=== PATIENT | male | born 1995 | race Two or more races ===

== ENCOUNTER 2018-01-27 08:12 | Observation (INO) ==
[2018-01-27 08:57] LABS: Baso % (Auto) 0.3 % (0.0-2.0); Eos % (Auto) 0.2 % (0.0-4.0); Hematocrit 45.6 % (39.0-51.0); Hemoglobin 15.8 gm/dL (13.0-17.0); Lymph # (Auto) 2.2 th/mm3 (1.0-4.8); Mean Corpuscular HGB Conc 34.6 % (32.0-36.0); Mean Corpuscular Hemoglobin 29.8 pg (27.0-34.0); Mean Corpuscular Volume 86.1 fL (80.0-100.0); Mean Platelet Volume 9.1 fL (7.0-11.0); Mono # (Auto) 1.5 th/mm3 (0.0-0.9); Mono % (Auto) 12.2 % (0.0-8.0); Neut # (Auto) 8.6 th/mm3 (1.8-7.7); Neut % (Auto) 69.3 % (16.0-70.0); Platelet Count 181 th/mm3 (150-450); Red Cell Distribution Width 12.5 % (11.6-17.2); White Blood Count 12.4 th/mm3 (4.0-11.0)
--- NOTE | 2018-01-27 09:06 | ED ---
HPI General Chief Complaint: Abdominal Pain Stated Complaint: Abd pain Time Seen by Provider: 01/27/18 08:38 Source: patient, RN notes reviewed and old records reviewed Mode of arrival: ambulatory Limitations: no limitations History of Present Illness HPI narrative: 22-year-old male notes 1 day history of right lower quadrant abdominal pain. He denies other concurrent complaints. Quality is sharp. Severity is moderate. He denies recurrent history of this. MD complaint: abdominal pain Onset (ago): day(s) Pain Consistency: constant Location: RLQ Severity: moderate Quality: sharp Radiation: none Migration to: no migration Relieving factors: nothing Associated symptoms: denies other symptoms Related Data Home Medications Medication Instructions Recorded Confirmed No Known Home Medications 01/27/18 01/27/18 Allergies Allergy/AdvReac Type Severity Reaction Status Date / Time No Known Allergies Allergy Verified 01/27/18 10:09 Review of Systems ROS: all other systems reviewed are negative FOR[facility]LY [facility] Medical History Medical History Patient denies medical problems (Acute) Surgical History Surgical History No history of previous surgery (Acute) Social History Social History Substance History: No History of Abuse Smoking Status: Never smoker How Often Do You Have a Drink Containing Alcohol: 4 or more times a week Recent Travel in [facility] within the Last 8 Weeks: No Recent Out of Country Travel within the Last 8 Weeks: No Immunization History Tetanus Immunization: <5 Years Exam Narrative Exam Narrative: GENERAL: 22 y/o male in no apparent distress SKIN: Focused skin assessment warm/dry. HEAD: Atraumatic. Normocephalic. EYES: Pupils equal and round. No scleral icterus. No injection or drainage. ENT: No nasal bleeding or discharge. Mucous membranes pink and moist. NECK: Trachea midline CARDIOVASCULAR: Regular rate and rhythm. No murmur appreciated. RESPIRATORY: No accessory muscle use. GASTROINTESTINAL: Abdomen soft, ttp in rlq, nondistended. Hepatic and splenic margins not palpable. MUSCULOSKELETAL: No obvious deformities. No clubbing. No cyanosis. No edema. NEUROLOGICAL: Awake and alert. No obvious cranial nerve deficits. Motor grossly within normal limits. Normal speech. PSYCHIATRIC: Appropriate mood and affect; insight and judgment normal. exam: No evidence of rotation, urethral discharge, testicular swelling or tenderness noted after permission with lacquer shader Course Reevaluation(s) Reevaluation #1: patient updated and agrees to admit, navneet given Consultations Consultation #1: dr uirbe will see patient and agrees to admit Initial Documented Vital Signs Temperature 99.3 F 01/27/18 08:13 Pulse Rate 126 H 01/27/18 08:13 Respiratory Rate 16 01/27/18 08:13 Blood Pressure 156/88 H 01/27/18 08:13 Pulse Oximetry 96 01/27/18 08:13 Last Documented Vital Signs Temperature 99.3 F 01/27/18 08:13 Pulse Rate 116 H 01/27/18 08:16 Respiratory Rate 19 01/27/18 08:16 Blood Pressure 117/78 01/27/18 08:16 Pulse Oximetry 98 01/27/18 08:16 Medical Decision Making MDM Narrative Medical decision making narrative: Will check blood work, urinalysis, CT scan abdominal pelvis and reevaluate Medical Screen Exam Complete: Yes Emergency Medical Condition: Yes Differential Diagnosis Differential Diagnosis: Appendicitis, stone, musculoskeletal Lab Data Lab results reviewed: Yes I reviewed the patient's lab results. Result diagrams: 01/27/18 08:41 01/27/18 08:41 Lab Results 01/27/18 01/27/18 Range/Units 08:41 08:41 WBC 12.4 H (4.0-11.0) th/mm3 RBC 5.30 (4.50-5.90) mil/mm3 Hgb 15.8 (13.0-17.0) gm/dL Hct 45.6 (39.0-51.0) % MCV 86.1 (80.0-100.0) fL MCH 29.8 (27.0-34.0) pg MCHC 34.6 (32.0-36.0) % RDW 12.5 (11.6-17.2) % Plt Count 181 (150-450) th/mm3 MPV 9.1 (7.0-11.0) fL Neut % (Auto) 69.3 (16.0-70.0) % Lymph % (Auto) 18.0 (9.0-44.0) % [place] % (Auto) 12.2 H (0.0-8.0) % Eos % (Auto) 0.2 (0.0-4.0) % Baso % (Auto) 0.3 (0.0-2.0) % Neut # (Auto) 8.6 H (1.8-7.7) th/mm3 Lymph # (Auto) 2.2 (1.0-4.8) th/mm3 [place] # (Auto) 1.5 H (0.0-0.9) th/mm3 Eos # (Auto) 0.0 (0.0-0.4) th/mm3 Baso # (Auto) 0.0 (0.0-0.2) th/mm3 WBC Differential . Differential Comment Auto diff final Sodium 140 (136-145) meq/L Potassium 3.8 (3.5-5.1) meq/L Chloride 104 (98-107) meq/L Carbon Dioxide 28.8 (21.0-32.0) meq/L Anion Gap 7 (5-15) meq/L BUN 13 (7-18) mg/dL Creatinine 1.10 (0.60-1.30) mg/dL Estimated GFR 82 L (>89) mL/min Random Glucose 110 H (74-106) mg/dL Calcium 9.1 (8.5-10.1) mg/dL Total Bilirubin 0.8 (0.2-1.0) mg/dL AST 16 (15-37) U/L ALT 29 (12-78) U/L Alkaline Phosphatase 62 (45-117) U/L Total Protein 8.4 H (6.4-8.2) g/dL Albumin 4.2 (3.4-5.0) g/dL Lipase 86 (73-393) U/L Imaging Data Attestation: I personally reviewed and interpreted this imaging study as follows : Radiologist's impression: Abdomen/Pelvis CT 01/27/18 08:37 CONCLUSION: 1. Findings consistent with acute appendicitis. 2. Right renal cyst. Discharge Plan Discharge Disposition Patient Disposition: 30 Still Patient Discharge Condition Condition: Stable Discharge Details Diagnosis: Acute appendicitis Physicians Team ED Provider: Marci Beverly Primary Care Provider: Primary Care Johana Klein Rxs /Orders / Referrals /Forms Prescriptions: No Action No Known Home Medications RF: 0 Discharge Interventions Interventions: Vital Signs Last Done: 01/27/18 08:16 Status ED Status: Admitted Observation Patient
[2018-01-27 09:13] LABS: Alanine Aminotransferase 29 U/L (12-78); Albumin 4.2 g/dL (3.4-5.0); Anion Gap 7 meq/L (5-15); Aspartate Aminotransferase 16 U/L (15-37); Blood Urea Nitrogen 13 mg/dL (7-18); Calcium 9.1 mg/dL (8.5-10.1); Carbon Dioxide 28.8 meq/L (21.0-32.0); Chloride 104 meq/L (98-107); Glomerular Filtration Rate 82 mL/min (>89); Glucose,Random 110 mg/dL (74-106); Lipase 86 U/L (73-393); Potassium 3.8 meq/L (3.5-5.1); Sodium 140 meq/L (136-145)
[2018-01-27 09:16] LABS: Alkaline Phosphatase 62 U/L (45-117); Total Protein 8.4 g/dL (6.4-8.2)
--- NOTE | 2018-01-27 09:44 | CT ---
EXAM DATE: 01/27/2018 9:31 AM EDT AGE/SEX: 22 years / Male INDICATIONS: Right lower abdomen pain for two days. CLINICAL DATA: This is the patient's initial encounter. Patient reports that signs and symptoms have been present for 2 days and indicates a pain score of 3/10. MEDICAL/SURGICAL HISTORY: None. None. ORAL CONTRAST: No oral contrast ingested. RADIATION DOSE: 6.07 CTDI (mGy) COMPARISON: No prior exams available for comparison. TECHNIQUE: Multiple contiguous axial images were obtained through the abdomen and pelvis following b olus infusion of 94 ml Omnipaque 350 (iohexol) nonionic water-soluble contrast as a single exam dos e. No oral contrast ingested. Using automated exposure control and adjustment of the mA and/or kV ac cording to patient size, radiation dose was kept as low as reasonably achievable to obtain optimal di agnostic quality images. DICOM format image data is available electronically for review and comparis on. FINDINGS: Lower Lungs: The visualized lower lungs are clear. Liver: The liver has a homogeneous density without space-occupying lesion. There is no dilation of th e biliary tree. Spleen: Homogeneous density without enlargement. Pancreas: Unremarkable without mass or calcification. Kidneys: Normal in size and shape. No evidence of mass or hydronephrosis. Right renal low-density. Adrenal Glands: Unremarkable. Aorta: The aorta and proximal iliac vessels are grossly unremarkable without aneurysmal dilation. Bowel/Mesentery: Prominent inflamed appendix without perforation or abscess. This is consistent with appendicitis. Inflammatory changes right lower quadrant. No fluid collection. Abdominal Wall: Intact. Retroperitoneum: No evidence of adenopathy in the retrocrural, para-aortic, or deep pelvic regions. Bladder: Contours are smooth. Reproductive Organs: No abnormal masses or calcifications seen. Inguinal: The inguinal region is unremarkable without evidence of adenopathy. Bony Structures: Unremarkable. CONCLUSION: 1. Findings consistent with acute appendicitis. 2. Right renal cyst. Electronically signed by: Gerardo Herman MD 01/27/2018 9:43 AM EDT
[2018-01-27] MEDS ORDERED: Piperacil/Tazo 3.375 GM Premix 50 ML IV.SIG ONE (10:00)
[2018-01-27] MEDS ORDERED: Morphine Sulfate Inj 2 MG/ML Vial IV.PUSH PRN (11:58)
[2018-01-27] MEDS ORDERED: Sod Chloride 0.9% Inj 1,000 ML IV.SIG SCH (12:15)
[2018-01-27] MEDS: Piperacil/Tazo 3.375 GM Premix 50 ML IV.SIG SCH ×2 (15:03→22:00)
--- NOTE | 2018-01-27 15:07 | P.HPGS ---
History of Present Illness Service: General Surgery Primary Care Physician: No Primary Care Physician History of Present Illness: 22 yo M in [employer] here from [place] developed acute RLQ abdominal pain around 3 pm Monday. He did have radiation of the pain to the right testicle. + anorexia. WBC 12,000.. CT a/p reveals acute appendicitis. He has no surgical or medical history. - Diagnosis (1) Acute appendicitis Review of Systems All other systems reviewed negative except as stated in HPI PMFSH - History History Provided By: Patient - Medical History Medical History: Medical History (Last Reviewed 01/27/18 @ 09:04 by Marci Beverly MD) Patient denies medical problems - Surgical History Surgical History: Surgical History (Last Reviewed 01/27/18 @ 09:04 by Marci Beverly MD) No history of previous surgery - Tobacco History Second Hand Smoke Exposure: No Smoking Status: Never smoker - Alcohol History How Often Do You Have a Drink Containing Alcohol: 4 or more times a week - Substance Use History Substance History: No History of Abuse - Travel History Recent Travel in the [facility] Within the Last 8 Weeks: No Recent Travel Out of the Country Within the Last 8 Weeks: No - Immunization History Tetanus Immunization: <5 Years Medications and Allergies Active Medications: Active Medications Lactated Ringer's (Lr 1000 Ml Inj) 1,000 mls @ 125 mls/hr IV.CONT .Q8H [facility] Last Admin: 01/27/18 13:02 Dose: 125 mls/hr Piperacillin/Tazobactam/Dextrose (Zosyn 3.375 Gm Premix) 50 mls @ 100 mls/hr IV.SIG Q6H [facility] Last Admin: 01/27/18 15:03 Dose: 100 mls/hr Sodium Chloride (Ns Inj) 1,000 mls @ 0 mls/hr IV.SIG BOLUS [facility]OMA Morphine Sulfate (Morphine Inj) 2 mg IV.PUSH Q3H PRN PRN Reason: PAIN1-10 Ondansetron HCl (Zofran Inj) 4 mg IV.PUSH Q6H PRN PRN Reason: NAUSEA OR VOMITING Sodium Chloride (Ns Flush) 2 ml IV.FLUSH BID HOMA Sodium Chloride (Ns Flush) 2 ml IV.FLUSH UNSCH PRN PRN Reason: FLUSH AFTER USING IV ACCESS Allergies Allergy/AdvReac Type Severity Reaction Status Date / Time No Known Allergies Allergy Verified 01/27/18 10:09 Home Medications Medication Instructions Recorded Confirmed Type No Known Home Medications 01/27/18 01/27/18 History Exam Vital signs: Vital Signs 01/27/18 08:13 01/27/18 08:16 01/27/18 11:47 Temperature 99.3 F Pulse Rate 126 H 116 H 102 H Respiratory Rate 16 19 16 Blood Pressure 156/88 H 117/78 112/56 L Pulse Oximetry 96 98 98 01/27/18 12:00 Temperature 98.7 F Pulse Rate 96 H Respiratory Rate 16 Blood Pressure 115/73 Pulse Oximetry 97 Intake & Output 01/26/18 01/27/18 01/27/18 18:59 06:59 18:59 Intake Total 50 / 50 Balance 50 / 50 Weight 76.7 kg Intake: IV 50 / 50 Zosyn 3.375 GM Premix 50 ML @ 50 / 50 100 mls/hr IV.SIG ONCE ONE Rx#: [id number] Other: # Voids 1 Weight On Admission 76.7 kg Narrative: GENERAL: Awake and alert. No acute distress. Cooperative. HEAD: Normocephalic. Atraumatic. EYES: Pupils equal round and reactive to light bilaterally. No scleral icterus. ENT: Moist oral mucosa. NECK: Trachea midline. CHEST: Nonlabored breathing. No respiratory distress. CARDIOVASCULAR: Regular rate and rhythm. ABDOMEN: Soft, nondistended. Severe ttp in RLQ at mcburnery's point. EXTREMITIES: No cyanosis or edema. SKIN: Warm, dry, nonjaundiced. Results - Results CT scan - abdomen: report reviewed, image reviewed CT scan - pelvis: report reviewed, image reviewed Caprini VTE Risk Assessment Caprini VTE Risk Assessment: No/Low Risk (score <= 1) Caprini Risk Assessment Model: Point Value = 1 Point Value = 2 Point Value = 3 Point Value = 5 Age 41-60 Minor surgery BMI > 25 kg/m2 Swollen legs Varicose veins or History of unexplained or recurrent spontaneous Oral contraceptives or hormone replacement Sepsis (< 1 month) Serious lung disease, including pneumonia (< 1 month) Abnormal pulmonary function Acute myocardial infarction Congestive heart failure (< 1 month) History of inflammatory bowel disease Medical patient at bed rest Age 61-74 Arthroscopic surgery Major open surgery (> 45 min) Laparoscopic surgery (> 45 min) Malignancy Confined to bed (> 72 hours) Immobilizing plaster cast Central venous access Age >= 75 History of VTE Family history of VTE Factor V Leiden Prothrombin [id number] Lupus anticoagulant Anticardiolipin antibodies Elevated serum homocysteine Heparin-induced thrombocytopenia Other congenital or acquired thrombophilia Stroke (< 1 month) Elective arthroplasty Hip, pelvis, or leg fracture Acute spinal cord injury (< 1 month) Prophylaxis Regimen: Total Risk Factor Score Risk Level Prophylaxis Regimen 0-1 Low Early ambulation 2 Moderate Order ONE of the following: *Sequential Compression Device (SCD) *Heparin 5000 units SQ BID 3-4 Higher Order ONE of the following medications: *Heparin 5000 units SQ TID *Enoxaparin/Lovenox 40 mg SQ daily (WT < 150 kg, CrCl > 30 mL/min) *Enoxaparin/Lovenox 30 mg SQ daily (WT < 150 kg, CrCl > 10-29 mL/min) *Enoxaparin/Lovenox 30 mg SQ BID (WT < 150 kg, CrCl > 30 mL/min) AND/OR *Sequential Compression Device (SCD) 5 or more Highest Order ONE of the following medications: *Heparin 5000 units SQ TID (Preferred with Epidurals) *Enoxaparin/Lovenox 40 mg SQ daily (WT < 150 kg, CrCl > 30 mL/min) *Enoxaparin/Lovenox 30 mg SQ daily (WT < 150 kg, CrCl > 10-29 mL/min) *Enoxaparin/Lovenox 30 mg SQ BID (WT < 150 kg, CrCl > 30 mL/min) AND *Sequential Compression Device (SCD) Assessment and Plan - Assessment (1) Acute appendicitis Code(s): K35.80 - Unspecified acute appendicitis Status: Acute Qualifiers: Acute appendicitis type: unspecified acute appendicitis type Qualified Code (s): K35.80 - Unspecified acute appendicitis Plan: Recommend proceed to operating room for laparoscopic possible open appendectomy. Discussed in detail with the patient and he desires to proceed. Antibiotics have been initiated. H&P: Quality - VTE Deep Vein Thrombosis/Pulmonary Embolism Present on Admission: No
[2018-01-27] MEDS ORDERED: Glycopyrrolate Inj 1 MG/5 ML Syringe IV.PUSH ONE (16:59)
[2018-01-27] MEDS ORDERED: Neostigmine Inj 5 MG/5 ML Syringe IV.PUSH ONE (16:59)
[2018-01-27] MEDS ORDERED: Lidocaine PF 1% Inj 5 ML Syringe INFILTRATN ONE (16:59)
[2018-01-27] MEDS ORDERED: Bupivacaine/Epinephrine Inj 0.25% 50 ML Vial ONE (19:51)
[2018-01-27] MEDS ORDERED: Famotidine PF Inj 20 MG/2 ML Vial ONE (20:23)
[2018-01-27] MEDS ORDERED: fentaNYL Citrate Inj 100 MCG/2 ML Ampul ONE (21:50)
--- NOTE | 2018-01-27 22:12 | P.OP ---
- Preoperative Diagnosis (1) Acute appendicitis - Postoperative Diagnosis (1) Acute appendicitis Date of procedure: 01/27/18 Procedure: Laparoscopic appendectomy Anesthesia: NOEMI Surgeon: Jovanny Higgins MD Fiber Optic Splicer: [place] Estimated blood loss (mL): 20 Pathology: other (Appendix) Operation and Findings: EBL: 20 cc Complications: None apparent Operative findings: Dilated and inflamed appendix with some exudative tissue. No gangrene or perforation. Procedure in detail: The patient was taken to the operating room placed in the supine position with left arm tucked. General endotracheal anesthesia was induced and the abdomen was prepped and draped in usual sterile fashion. Surgical timeout was performed to verify correct patient procedure and site. Perioperative antibiotics were administered as necessary. Local anesthetic was injected in the skin and subcutaneous tissue superior to the umbilicus and a 5 mm incision made. Using the 5 mm Optiview trocar with laparoscope the abdomen was directly entered. The abdomen was then insufflated to 15 mmHg with CO2 gas which the patient tolerated well. The patient was then placed in Trendelenburg position and turned slightly to the left. A 12 mm port was placed under laparoscopic visualization in the left lower abdomen and another 5 mm port in the suprapubic area. Attention was turned to the right lower quadrant. The appendix dilated and inflamed in the mid and distal portions with omentum adherent to it. There is some exudate present. There was no perforation.. The mesoappendix was taken down with the Harmonic scalpel. Two #1 PDS Endoloops were placed at the base the appendix and the appendix transected with Harmonic scalpel. It was then removed using an Endo Catch bag. The appendiceal stump was intact with no leakage. There was no purulent fluid identified in the abdomen. The abdomen was allowed to desufflate. The fascia at the 12 mm port site was closed with a 0 Vicryl suture. Skin closed with subcuticular Monocryl as well as Dermabond. The patient tolerated the procedure well was extubated and taken to PACU in stable condition.
[2018-01-27] MEDS ORDERED: *Meperidine Inj 25 MG/ML Vial PERIprocedural Use ONLY ONE (23:04)
[2018-01-27] MEDS: Ketorolac Inj 30 MG/ML (IVP) Vial IV.PUSH SCH (23:21)
[2018-01-28] MEDS: Piperacil/Tazo 3.375 GM Premix 50 ML IV.SIG SCH ×3 (04:56→16:57)
[2018-01-28] MEDS: Ketorolac Inj 30 MG/ML (IVP) Vial IV.PUSH SCH ×3 (04:56→18:23)
[2018-01-28 08:31] VITALS: O2SAT 97
--- NOTE | 2018-01-28 10:19 | P.PN ---
Subjective Interval history: pt without complaint pos flatus Physical Exam Vital signs: Vital Signs 01/27/18 11:47 01/27/18 12:00 01/27/18 15:55 Temperature 98.7 F 98.2 F Pulse Rate 102 H 96 H 104 H Respiratory Rate 16 16 16 Blood Pressure 112/56 L 115/73 125/82 Pulse Oximetry 98 97 99 01/27/18 19:48 01/27/18 19:51 01/27/18 22:30 Temperature 98.5 F 97.9 F Pulse Rate 85 90 Respiratory Rate 16 14 Blood Pressure 116/71 136/69 Pulse Oximetry 98 98 99 01/27/18 22:35 01/27/18 22:45 01/27/18 23:00 Temperature 97.9 F 97.9 F 98.1 F Pulse Rate 108 H 90 90 Respiratory Rate 14 14 14 Blood Pressure 144/90 H 136/69 138/76 Pulse Oximetry 100 97 96 01/27/18 23:43 01/28/18 00:56 01/28/18 03:49 Temperature 97.4 F L 98.7 F Pulse Rate 99 H 87 Respiratory Rate 17 15 18 Blood Pressure 136/63 115/54 L Pulse Oximetry 94 L 94 L 96 01/28/18 08:00 Temperature 97.9 F Pulse Rate 95 H Respiratory Rate 17 Blood Pressure 101/58 L Pulse Oximetry 97 Intake & Output 01/27/18 01/28/18 01/28/18 18:59 06:59 18:59 Intake Total 100 / 100 3840 / 3840 Output Total 50 / 50 Balance 100 / 100 3790 / 3790 Weight 76.7 kg 76.7 kg Intake: IV 100 / 100 1100 / 1100 LR 1000 mL Inj 1,000 ML @ 125 1000 / 1000 mls/hr IV.CONT .Q8H [facility] Rx#: [id number] Zosyn 3.375 GM Premix 50 ML @ 100 / 100 100 / 100 100 mls/hr IV.SIG Q6H [facility] Rx#: [id number] Oral 240 / 240 Anesthesia Amount 2500 / 2500 Output: Estimated Blood Loss 50 / 50 Other: # Voids 1 1 Date of Last Bowel Movement 01/26/18 01/26/18 # Bowel Movements 0 Weight On Admission 76.7 kg - Constitutional no acute distress - Routine Abdominal Exam Present: soft Comments: incisional tenderness, mild distension Results - Labs CBC & Chem 7: 01/27/18 08:41 01/27/18 08:41 Assessment and Plan - Assessment (1) Acute appendicitis Code(s): K35.80 - Unspecified acute appendicitis Status: Acute - Plan Code Status: D/C home f/u office 2 weeks no strenuous activities (1) Acute appendicitis Qualifiers: Acute appendicitis type: unspecified acute appendicitis type Qualified Code(s ): K35.80 - Unspecified acute appendicitis
[2018-01-28 16:42] VITALS: BP 117/61; PULSE 87; RESP 17; TEMP 98.7
== END 2018-01-28 17:00 | disposition home or self-care (01) ==
LOC: NEPC 08:12 → NEDA 08:12 → NEPFCDU 12:31 → N06 23:24
PROVIDERS: ADMIT Surgery; ATTEND Surgery
PROC: LAPAPPY (ICD-10-PCS; 2018-01-27 20:59)